=== PATIENT | female | born 1970 | race Caucasian/White ===

== ENCOUNTER → 2021-02-01 11:03 | Outpatient (CLI) | payer OTHER, SELFPAY ==
--- NOTE | 2021-02-01 | DI.MRI.S_ITS ---
PROCEDURE: MR LUMBAR SPINE WO CON INDICATIONS: Other specified joint disorders, right hip TECHNIQUE: Noncontrast sagittal T1 spin echo and T2 fast echo, sagittal STIR, axial T1 and T2 fast spin echo through the lumbar spine. In cases with scoliosis, additional coronal T2 fast spin echo may be performed. COMPARISON: None. FINDINGS: Image quality: Excellent. Alignment and Curvature: No plain films are available for comparison, for numbering purposes. Thus, for the purposes of this examination, 5 lumbar type vertebral bodies will be presumed, as denoted on the montage panel. This should be confirmed and correlated with plain films, prior to any lumbar spinal intervention. Loss of normal lumbar lordosis. Mild grade 1 retrolisthesis of L5 on S1. Bone Marrow: Marrow is of normal overall signal. No acute vertebral body compression fractures. Moderate reactive signal within the endplates adjacent to the L5-S1 intervertebral disc. Spinal Cord: Conus medullaris terminates at the mid L2 level. Visualized cord demonstrates normal signal and size. Paraspinous Soft Tissues: No paravertebral masses. T12-L1: Normal appearance. L1-L2: Normal appearance. L2-L3: Normal appearance. L3-L4: Normal appearance. L4-L5: Mild diffuse disc bulge. Mild facet and ligamentum flavum hypertrophy. Mild canal stenosis. No foraminal stenosis. L5-S1: Severe disc height loss and desiccation. Mild diffuse disc bulge. Mild bilateral facet hypertrophy. Mild canal stenosis. Moderate bilateral foraminal stenosis. IMPRESSION: 1. Multilevel degenerative disc and facet disease, as well as ligamentum flavum hypertrophy and epidural lipomatosis. 2. Mild multilevel canal stenosis. 3. Multilevel foraminal stenoses, worst at L5-S1 bilaterally where there are moderate foraminal stenoses present. Dictated by: Dylan Danielson M.D. on 02/01/2021 at 12:46 Approved by: Dylan Danielson M.D. on 02/01/2021 at 12:48
--- NOTE | 2021-02-01 | DI.MRI.S_ITS ---
PROCEDURE: MR HIP RT W CON INDICATIONS: Other specified joint disorders, right hip TECHNIQUE: After the administration of 10 mL of dilute intra-articular Gadolinium contrast, coronal STIR of the bony pelvis; coronal and oblique axial T1 spin echo with fat saturation, axial T2 fast spin echo with fat saturation, sagittal T1 spin echo with and without fat saturation of the involved hip. COMPARISON: None. FINDINGS: Image quality: Excellent. Bones and joints: Bone marrow of the pelvic ring and proximal femurs show normal signal throughout. No intraosseous lesions or fractures. No avascular necrosis of the femoral head. The visualized lower lumbar spine appears normally aligned. The ligamental, neck, and labral plicae appear normal where visualized. Tendons and ligaments: The gluteus medius and minimus tendons appear intact, without associated muscle atrophy. The nearby proximal iliotibial band also appears intact. The iliopsoas tendon appears intact, without adjacent bursal fluid collections or evidence for impingement syndrome. The origin of the hamstring tendon is intact at the ischial tuberosity, as well as the associated sacrotuberous ligament. The straight and reflected heads of the rectus femoris muscle origin appear intact, as well as the conjoint tendon. The ligamentum teres appears intact where visualized. Labrum and cartilage: Linear high T2 signal intensity traverses the anterosuperior right hip labrum. Cartilage surface of the femoral head appears of normal thickness. No paralabral cysts. The alpha angle of the femur is within normal limits at less than 55 degrees. Soft tissues: Visualized muscles demonstrate normal bulk and internal signal. Quadratus femoris muscle demonstrates no internal edema to suggest ischiofemoral impingement. The proximal sciatic neurovascular bundle appears normal adjacent to the hamstring tendons. No free pelvic fluid. Bladder wall thickness is normal. Genitourinary structures and bowel loops appear normal where visualized. IMPRESSION: 1. Anterosuperior right hip labral tear. Dictated by: Dylan Danielson M.D. on 02/01/2021 at 12:41 Approved by: Dylan Danielson M.D. on 02/01/2021 at 12:43
--- NOTE | 2021-02-01 | DI.MRI.S_ITS ---
PROCEDURE: MR KNEE RT WO CON INDICATIONS: Other specified joint disorders, right hip TECHNIQUE: Noncontrast sagittal PD fast spin echo and T2 fast spin echo with fat saturation, sagittal 3-D FLASH with fat saturation; coronal T1 spin echo and PD fast spin echo with fat saturation, and axial PD fast spin echo with fat saturation through the knee. COMPARISON: None. FINDINGS: Image quality: Excellent. Menisci: There is amorphous high signal intensity within the medial meniscal body without articular surface extension, consistent with myxoid degeneration. There is linear oblique high signal intensity traversing the anterior horn and body of the lateral meniscus demonstrating superior and inferior articular surface extension, indicating complex tearing. Cruciate ligaments: The anterior and posterior cruciate ligaments appear intact. Medial structures: The medial collateral ligament appears intact. Visualized portions of the pes anserinus tendons appear normal. No abnormal bursal fluid. Lateral structures: The lateral collateral ligament demonstrates mild T2 signal elevation at the femoral origin. The long and short heads of the biceps femoris tendon appear intact. The popliteus tendon appears normal. Iliotibial band appears normal. Anterior structures: The quadriceps and patellar tendons appear intact. Patellar alignment is normal. No femoral trochlear dysplasia or ventral trochlear prominence. No edema in the infrapatellar fat pad. Bones and cartilage: No bone marrow contusions or fractures. Moderate subchondral degenerative marrow edema within the patellar apex. Mild tricompartmental periarticular osteophyte formation. Mild articular cartilage loss diffusely overlies the weight-bearing aspects of the medial and lateral compartments. There is a focal region of high-grade articular cartilage loss overlying the lateral patellar apex. Joint space: There is a small knee joint effusion. No Whipple's cyst. Normal appearing synovial plicae are incidentally noted. IMPRESSION: 1. Tricompartmental osteoarthritis with associated articular cartilage loss. 2. Lateral meniscal tearing. 3. Low-grade partial thickness lateral collateral ligament tear. 4. Knee joint effusion. Dictated by: Dylan Danielson M.D. on 02/01/2021 at 13:23 Approved by: Dylan Danielson M.D. on 02/01/2021 at 13:25
--- NOTE | 2021-02-01 | DI.RAD.S_ITS ---
PROCEDURE: XR TOE RT MIN 2V INDICATIONS: RIGHT TOE PAIN TECHNIQUE: 3 views of the of second toe(s) acquired. COMPARISON: None. FINDINGS: Bones: There is a comminuted mid and distal second phalaynx fracture. No intra-articular extension. No suspicious bony lesions. Soft tissues: No suspicious soft tissue densities. IMPRESSION: Comminuted mid and distal second phalaynx fracture without intra-articular extension. Dictated by: Zayra Brewster M.D. on 02/01/2021 at 15:48 Approved by: Zayra Brewster M.D. on 02/01/2021 at 15:50
--- NOTE | 2021-02-01 | DI.RAD.S_ITS ---
PROCEDURE: FL HIP INJECTION MR/CT RT INDICATIONS: Other specified joint disorders, right hip TECHNIQUE: The indications, alternatives, benefits, risks, and complications of the procedure were explained to the patient. Written informed consent was obtained and placed in the chart. The hip was examined fluoroscopically with the legs fixed in slight internal rotation, and a site for needle placement chosen for entry into the hip joint from an anterior approach. Care was taken to locate the common femoral artery and vein beforehand. The skin was prepped and draped in a sterile fashion, and 1% Lidocaine infiltrated from skin down to joint capsule. A spinal needle was inserted into the joint, and a small amount of iodinated contrast media injected to confirm intra-articular placement of the needle tip. This was followed by approximately 10 mL dilute solution of a gadolinium containing MR contrast agent. The needle was removed and a dressing was applied. The patient was given postprocedural instructions and sent to the MR suite for imaging. COMPARISON: None. FINDINGS: A single fluoroscopic spot image demonstrates intra-articular location of injected iodinated contrast. IMPRESSION: Successful fluoroscopically guided administration of dilute Gadolinium solution into the hip joint for MR arthrogram. Dictated by: Milagros Vincent MD, PhD on 02/01/2021 at 15:05 Approved by: Milagros Vincent MD, PhD on 02/01/2021 at 15:06
== END ==
PROVIDERS: Referring Provider Physical Medicine & Rehabilitation; Visit Provider Physical Medicine & Rehabilitation
DX: M25.851 Other specified joint disorders, right hip (principal); S73.191A Other sprain of right hip, initial encounter; M79.674 Pain in right toe(s); S92.531A Displaced fracture of distal phalanx of right lesser toe(s), initial encounter for closed fracture; M51.36 Other intervertebral disc degeneration, lumbar region; M51.37 Other intervertebral disc degeneration, lumbosacral region; M48.061 Spinal stenosis, lumbar region without neurogenic claudication; M48.07 Spinal stenosis, lumbosacral region; M17.11 Unilateral primary osteoarthritis, right knee; S83.281A Other tear of lateral meniscus, current injury, right knee, initial encounter; S83.421A Sprain of lateral collateral ligament of right knee, initial encounter; M25.462 Effusion, left knee; X58.XXXA Exposure to other specified factors, initial encounter
CPT/HCPCS: 27093; 72148; 73660; 73721; 73722; 77002